=== PATIENT | female | born 2000 | race Caucasian/White ===

== ENCOUNTER 2022-04-21 12:50 | Outpatient (CLI) | payer OTHER, SELFPAY ==
--- NOTE | ~2022-04-21 | US_ITS ---
EXAMINATION: US OB follow up DATE: 04/21/2022 14:12 INDICATION: Marginal insertion of the umbilical cord TECHNIQUE: Real-time ultrasound of the pelvis was performed. The interpreting radiologist was not pre sent for the study. COMPARISON: None. FINDINGS: There is a single living fetus in breech presentation. The placenta is fundal. cardia c activity and movement are noted. heart rate is 131 beats per minute (bpm). The amniotic fluid index is 16.3 cm which is normal (normal range: 8.8 cm to 23.8 cm). The umbilical cord appears to insert centrally in the placenta. The following biometric data were obtained: Biparietal diameter (BPD): 7.8 cm; head circumference (HC): 29.1 cm; abdominal circumference (AC): 28 .7 cm; femur length (FL): 5.9 cm. These measurements are concordant. Estimated weight is 1884 g +/- 282 g, which correlates with the 63rd percentile when 06/21/2022 i s used as estimated date of delivery. As single measurements, these parameters are each equal to the following estimated gestational ages w ith ranges of +/- 2 standard deviations: BPD: 31 weeks 1 days +/- 3 weeks 1 days. HC: 32 weeks 1 days +/- 3 weeks 0 days. AC: 32 weeks 5 days +/- 3 weeks 0 days. FL: 31 weeks 0 days +/- 3 weeks 0 days. estimated gestational age based solely on measurements from this exam is 31 weeks 5 days +/- 2 weeks 2 days. IMPRESSION: 1. Single living fetus in breech presentation. 2. Normal amniotic fluid index. 3. Umbilical cord appears to insert centrally in the placenta. 4. Estimated weight is 1884 g +/- 282 g, which correlates with the 63rd percentile when 3 is used as estimated date of delivery. Reviewed, dictated and finalized at location B. [employer] INTERPRETER IMPRESSION: 1. Single living fetus in breech presentation. 2. Normal amniotic fluid index. 3. Umbilical cord appears to insert centrally in the placenta. 4. Estimated weight is 1884 g +/- 282 g, which correlates with the 63rd p ercentile when 06/21/2022 is used as estimated date of delivery.
== END 2022-04-21 12:51 | disposition home or self-care (01) ==
PROVIDERS: Visit Provider Obstetrics & Gynecology
DX: O43.129 Velamentous insertion of umbilical cord, unspecified trimester (principal); Z3A.31 31 weeks gestation of pregnancy
CPT/HCPCS: 76816